=== PATIENT | female | born 1995 | race Two or more races ===

== ENCOUNTER → 2021-02-19 14:37 | Outpatient (CLI) | payer OTHER, SELFPAY ==
--- NOTE | ~2021-02-19 | XR_ITS ---
EXAMINATION: XR chest 2V 02/19/2021 15:01 INDICATION: Chest pain PROCEDURE: 2 view chest COMPARISON: No prior studies for comparison. FINDINGS: The lungs are clear. The cardiomediastinal silhouette is within normal limits. There are no pleural effusions. There is no pneumothorax suspected. IMPRESSION: 1: NO ACUTE CARDIOPULMONARY DISEASE. Reviewed, dictated and finalized at location A.
== END ==
DX: R07.89 Other chest pain (principal)
CPT/HCPCS: 71046

== ENCOUNTER → 2021-05-11 15:52 | Outpatient (CLI) | payer OTHER, SELFPAY ==
--- NOTE | ~2021-05-11 | MR_ITS ---
EXAMINATION: MR brain/brain stem wo con EXAM DATE: 05/11/2021 16:44 INDICATION: Migraine without status migrainosus Migraines. Some light sensitivity and nausea. TECHNIQUE: Magnetic resonance imaging (MRI) of the brain/brain stem obtained without contrast. Lamont al T1, axial diffusion, gradient echo (T2*), T1, T2, FLAIR sequences obtained. There is no prior st udy for comparison. FINDINGS: There are low-lying cerebellar tonsils bilaterally with crowding at the foramen magnum, mik ting criteria for Chiari I malformation. No evidence of upper cervical syrinx or edema. There are no areas of restricted diffusion to suggest acute infarction. There is no acute hemorrhage seen on the T2*, a hemosiderin sensitive sequence. No intraparenchymal brain mass. The ventricles a re normal in size. There are no extra-axial collections. Flow voids are seen in the cerebral arteri es on the T2-weighted sequences consistent with their expected patency. The orbits are unremarkable. Soft tissue is unremarkable. IMPRESSION: Chiari I malformation. Reviewed, dictated and finalized at location A. [employer] IMPRESSION: Chiari I malformation.
== END ==
DX: G43.909 Migraine, unspecified, not intractable, without status migrainosus (principal); G93.5 Compression of brain
CPT/HCPCS: 70551

== ENCOUNTER → 2022-01-28 12:32 | Outpatient (CLI) | payer OTHER, SELFPAY ==
--- NOTE | ~2022-01-28 | CT_ITS ---
EXAMINATION: CT abdomen pelvis w con INDICATION: Right lower quadrant pain TECHNIQUE: Computed tomographic images of the abdomen and pelvis were obtained after the administrati on of 100 cc of Omnipaque 350 intravenous contrast. The dose-length product (DLP) was 1086.75 mGy-cm. Automated exposure control and iterative reconstruction technique were employed. COMPARISON: None available FINDINGS: The lung bases are clear. The heart size is normal. The liver, spleen, pancreas, gallbladde r, and adrenal glands are normal. The kidneys are unremarkable. The appendix is normal. No pathologic ally enlarged abdominal or pelvic lymph nodes are identified. There is no free intraperitoneal gas or evidence of bowel obstruction. There is mild distention of the urinary bladder. IMPRESSION: 1. No CT correlate for the patient's symptoms. Reviewed, dictated and finalized at location L.
== END ==
DX: R10.31 Right lower quadrant pain (principal)
CPT/HCPCS: 74177; Q9967

== ENCOUNTER → 2022-10-24 09:47 | Outpatient (CLI) | payer OTHER, SELFPAY ==
--- NOTE | ~2022-10-24 | US_ITS ---
US axilla RT DATE: 10/24/2022 10:03 INDICATION: Right axillary lump, reportedly getting smaller TECHNIQUE: Real-time and color flow imaging targeted to right axillary complaint COMPARISON: None FINDINGS: There is an oval parallel circumscribed hypoechoic lesion measuring approximately 5.7 x 2.6 millimeters, with suggestion of a fatty hilum. No posterior shadowing. This is likely a benign intra mammary lymph node. The patient's report that this scattered smaller further support benign process. IMPRESSION: BI-RADS Category 3: Probably benign finding. Probable benign right axillary lymph node Recommendation: 6 month targeted right axillary ultrasound follow-up Reviewed, dictated and finalized at Location A. Reviewed, dictated and finalized at location A.
== END ==
PROVIDERS: PCP Nurse Practitioner; Visit Provider Nurse Practitioner
DX: R22.31 Localized swelling, mass and lump, right upper limb (principal)
CPT/HCPCS: 76882

== ENCOUNTER 2023-01-20 12:46 | Emergency (ER) | payer OTHER, SELFPAY ==
--- NOTE | ~2023-01-20 | CT_ITS ---
EXAMINATION: CT brain wo con DATE: 01/20/2023 14:02 INDICATION: Headache. Left facial tingling. TECHNIQUE: Computed tomography (CT) of the head was performed without intravenous contrast. The mA wa s adjusted according to patient size. Iterative reconstruction technique was employed. The dose-lengt h product was 681.00 mGy-cm. COMPARISON: Brain MRI 05/11/2021 FINDINGS: The cerebellar tonsils extend 7 mm inferior to foramen magnum, consistent with Chiari I mal formation. There is no intracranial hemorrhage, acute infarction, or abnormal intracranial mass lesio n. The ventricles are normal in size. The orbits are normal. The paranasal sinuses are clear. The mas toid air cells are normal. IMPRESSION: 1. Chiari I malformation. Reviewed, dictated and finalized at location A. IMPRESSION: 1. Chiari I malformation.
[2023-01-20 12:52] VITALS: BP 139/96; PULSE 71; RESP 16; TEMP 36.2; O2SAT 100
[2023-01-20] MEDS: SODIUM CHLORIDE 0.9% IV 1,000 ML 999 ML IV CONT (14:15)
[2023-01-20] MEDS: KETOROLAC 30 MG/ML VIAL (*BKC) IV PUSH (14:20)
[2023-01-20] MEDS: METOCLOPRAMIDE HCL INJ 10 MG/2 ML VIAL IV PUSH (14:21)
[2023-01-20] MEDS: diphenhydrAMINE HCl INJ 50 MG/ML VIAL 25 MG IV PUSH (14:23)
--- NOTE | 2023-01-20 15:43 | ED.GENADULT ---
HPI - General Adult General Chief complaint: Neuro Symptoms/Deficit Stated complaint: left face tingling Time Seen by Provider: 01/20/23 13:29 History of Present Illness HPI narrative: Patient is a 27-year-old female who presents ER with facial tingling. Patient has history of Chiari malformation. She reports over the last week she has been having posterior headache that is throbbing. A couple days ago she had midline tingling over her philtrum and middle of her chin. It lasted for approximately 1 second. Today she has had the same tingling that is extended to the left side of her cheek. Also lasting seconds. Unsure if it is caused by turning her head. It is associated with her headache. She had something similar several years back. No formal diagnosis of migraine headache. She has no fevers or chills or sweats. She has been seen by neurologist in the past for Chiari malformation and they only want to do conservative management in the last she had severe symptoms at which time she would potentially need surgery but she was not referred to a neurosurgeon. She has no numbness or weakness in the arms or legs. No changes in vision or hearing. Patient has not tried any pain medications. Related Data Allergies Allergy/AdvReac Type Severity Reaction Status Date / Time azithromycin Allergy Rash Verified 01/20/23 14:34 Review of Systems Review of Systems: All systems reviewed & are unremarkable except as noted in HPI and below Constitutional: Constitutional: Denies chills, Denies fatigue and Denies fever(s) Eyes: Eyes: Denies change in vision and Denies photophobia ENT: Denies nasal congestion and Denies sore throat Neurologic: Denies dizziness, Reports headache(s) and Denies focal weakness Comments: Facial tingling PMFSH Past Medical History Medical History (Updated 01/20/23 @ 15:53 by Stephen Dunham MD) Chiari malformation Surgical History Surgical History (Updated 01/20/23 @ 15:46 by Stephen Dunham MD) No history of previous surgery Exam Narrative: GENERAL: Well-appearing, well-nourished, and in no acute distress. HEAD: Normocephalic, atraumatic. EYES: PERRLA and EOMI. ENT: Mucous membranes moist. CHEST: Clear to auscultation. No respiratory distress. HEART: Regular rate and rhythm. Normal peripheral pulses. EXTREMITIES: Normal range of motion. No edema. SKIN: Warm, dry, no rash. NEURO: No focal deficits. No upper extremity drift. Normal [id number] testing. Normal rapid alternating movements of the hands. Cranial nerves symmetric. No decrease sensation of the face. No dysarthria or expressive aphasia. Alert and oriented x3. PSYCH: Normal mood and affect. Course Course Emergency Course: Headache resolved with Reglan/Benadryl/Toradol/IV fluid. No tingling of her face. Recommend follow-up with her neurologist at [facility]. Discussed signs and symptoms that should prompt immediate return to the ER. Vital Signs Vital signs: Vital Signs Temperature 97.2 F L 01/20/23 12:52 Pulse Rate 71 01/20/23 12:52 Respiratory Rate 16 01/20/23 12:52 Blood Pressure 139/96 H 01/20/23 12:52 Pulse Oximetry 100 01/20/23 12:52 Oxygen Delivery Room Air 01/20/23 12:52 Temperature 97.2 F L 01/20/23 12:52 Pulse Rate 71 01/20/23 12:52 Respiratory Rate 16 01/20/23 12:52 Blood Pressure 139/96 H 01/20/23 12:52 Pulse Oximetry 100 01/20/23 12:52 Oxygen Delivery Room Air 01/20/23 12:52 Medical Decision Making Vital Signs Vital Signs: Vital Signs Temperature 97.2 F L 01/20/23 12:52 Pulse Rate 71 01/20/23 12:52 Respiratory Rate 16 01/20/23 12:52 Blood Pressure 139/96 H 01/20/23 12:52 Pulse Oximetry 100 01/20/23 12:52 Oxygen Delivery Room Air 01/20/23 12:52 Temperature 97.2 F L 01/20/23 12:52 Pulse Rate 71 01/20/23 12:52 Respiratory Rate 16 01/20/23 12:52 Blood Pressure 139/96 H 01/20/23 12:52 Pulse Oximet
[2023-01-20 16:10] VITALS: BP 108/66; PULSE 73; RESP 16; O2SAT 100
== END 2023-01-20 16:10 | disposition home or self-care (01) ==
PROVIDERS: Emergency Provider Emergency Medicine
DX: G93.5 Compression of brain (principal); R51.9 Headache, unspecified
CPT/HCPCS: 70450; 96361; 96374; 96375; 99284; J1200; J1885; J2765; J7030

== ENCOUNTER 2025-04-24 07:34 | Outpatient (CLI) | payer OTHER, SELFPAY ==
--- NOTE | ~2025-04-24 | MMUS_ITS ---
EXAMINATION: MM diagnostic lucero BI w chris, US breast LT limited INDICATION: 29-year old female; presents for imaging evaluation of an area of pimple on the left breast lower inner location that as since popped with residual skin discoloration. COMPARISON: Baseline TECHNIQUE: Digital breast tomosynthesis ML, CC and MLO views of BILATERAL breast were obtained with computer-aided detection to assist in interpretation of the study. A radiopaque skin marker was placed over the area of LEFT breast area of skin discoloration. FINDINGS: The breasts are almost entirely fatty. There are no suspicious masses, calcifications, architectural distortion or any other abnormality in either breast. No suspicious mammographic abnormality correlates to the radiopaque skin marker. LEFT BREAST ULTRASOUND FINDINGS: Targeted sonographic evaluation of the area of concern was completed. At 7:00, 12 cm from the nipple, corresponding to the area of concern, there is a linear hypoechoic area within the skin. This is compatible with a resolving sebaceous cyst. IMPRESSION: Resolving/Involuting sebaceous cyst at 7:00, 12 cm FN correlates to the area of concern in the LEFT breast. No mammographic evidence of malignancy in either breast. Recommendations: Clinical management of patient's area of focal skin discoloration. Screening mammogram at age 38. BI-RADS Category 2: Benign finding(s). Reviewed, dictated and finalized at location B. IMPRESSION: Resolving/Involuting sebaceous cyst at 7:00, 12 cm FN correlates to the area of concern in the LEFT breast. No mammographic evidence of malignancy in either breast. Recommendations: Clinical management of patient's area of focal skin discoloration. Screening mammogram at age 38. BI-RADS Category 2: Benign finding(s).
== END 2025-04-24 07:35 | disposition home or self-care (01) ==
DX: N64.59 Other signs and symptoms in breast (principal); N60.82 Other benign mammary dysplasias of left breast
CPT/HCPCS: 76642; 77062; 77066; G0279